=== PATIENT | male | born 1995 | race Caucasian/White ===

== ENCOUNTER → 2016-06-28 | Outpatient (CLI) | payer OTHER | END | disposition home or self-care (01) | LOC: RES 09:57 | DX: Z02.3 Encounter for examination for recruitment to armed forces (principal); Z00.00 Encounter for general adult medical examination without abnormal findings | CPT/HCPCS: 94060; 94726; 94729 ==

== ENCOUNTER → 2016-08-20 | Outpatient (CLI) | payer OTHER | END | disposition home or self-care (01) | LOC: RES 12:40 | DX: Z02.3 Encounter for examination for recruitment to armed forces (principal) | CPT/HCPCS: 94070 ==